=== PATIENT | female | born 1965 | race Caucasian/White ===

== ENCOUNTER → 2019-01-19 | Outpatient (CLI) | payer OTHER ==
[~2019-01-19] MED LIST: BI-EST PO; CHOL200022 PO; GLUC-396 PO; IOPAMIDOL 61% 75 ML INFUS BTL 75 ML ONE; KET10 PO; LOR5/325 PO; MULT-976 PO; NATURAL PROGESTERONE; OMEG-152 PO; OMEP-153 PO; PROG100C PO; TEST5POW21 SL; THYR32.517 PO; THYR65TA14 PO; THYROID PO; [UNRECOGNIZED DRUG - CODE] PO; [UNRECOGNIZED DRUG - CODE] PO; [UNRECOGNIZED DRUG - CODE] PO; [UNRECOGNIZED DRUG - MIXTURE] PO
--- NOTE | 2019-01-19 15:05 | RADIOLOGY IMAGING REPORT ---
FACILITY: [facility] PATIENT NAME: Kristine De Guzman : 1965 MR: [id number] V: [id number] EXAM DATE: ORDERING PHYSICIAN: JLUIS WEST TECHNOLOGIST: [place] [facility] [place] Kristine De Guzman : 1965 Visit/Account:[id number] Date of Sevice: 01/19/2019 EXAMINATION: CT abdomen and pelvis with contrast COMPARISON: None. HISTORY: Lower abdominal pain with rectal bleeding. PROCEDURE: Multiplanar contrast enhanced CT of the abdomen and pelvis with 75 mL intravenous Isovue 3 70. One of the following dose optimization techniques was utilized in the performance of this exam: A utomated exposure control; adjustment of the mA and/or kV according to the patient's size; or use of an iterative reconstruction technique. Specific details can be referenced in the facility's radiolo gy CT exam operational policy. FINDINGS: Visualized thorax: Negative. Liver: Negative. Gallbladder and biliary system: Cholecystectomy. No bile duct dilation. Spleen: Negative. Pancreas: Negative. Adrenal glands: Negative. 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 No renal mass or hydronephrosis. Urinary bladder is unremarkable. Vessels: Within normal limits. Bowel and mesentery: Stomach, small bowel, and appendix are unremarkable. Small to moderate amount o f stool in the colon. Single tiny diverticulum along the proximal sigmoid colon. No bowel or mesent tracie inflammation. Pelvic organs: Hysterectomy. No adnexal mass. Lymph nodes: No adenopathy. Free air/free fluid: None. Abdominal wall and osseous structures: Abdominal wall is intact. Lower lumbar spine minor facet arth ropathy. No acute findings. IMPRESSION: 1. No findings of acute disease in the abdomen or pelvis. 2. Chronic/incidental findings as described above. Report Dictated By: Salomon Bowers MD at 01/19/2019 2:54 PM Report E-Signed By: Salomon Bowers MD at 01/19/2019 3:01 PM WSN:[id number]
== END ==
LOC: CT 10:01
PROVIDERS: ATTEND Family Medicine
DX: K62.5 Hemorrhage of anus and rectum (principal); R10.9 Unspecified abdominal pain
CPT/HCPCS: 74177; Q9967

== ENCOUNTER 2019-02-22 01:15 | Day surgery (SDC) | payer OTHER ==
[~2019-02-22] VITALS: Ht 154.9 cm; Wt 52.6 kg
[~2019-02-22 01:15] MED LIST changes: +CYAN500L6 PO; -IOPAMIDOL 61% 75 ML INFUS BTL 75 ML ONE; +MULTI MINERAL PO; +THYR120T10 PO
[2019-02-22] MEDS ORDERED: PROPOFOL EMUL(*) 10MG/ML 20 ML 20 ML ONE ×2 (07:03→11:03)
[2019-02-22 09:45] VITALS: BP 118/73
[2019-02-22] MEDS ORDERED: LIDOCAINE/SOD BICARB 8.4% SYR ID ONE (10:00)
[2019-02-22] MEDS ORDERED: NORMOSOL R SOLN(*) 1000 ML BAG 1,000 ML IV PRN (10:00)
[2019-02-22 11:40] VITALS: BP 101/64
--- NOTE | 2019-02-22 11:40 | NUR ---
1140- PT BROUGHT TO BAY 5 IN LL POSITION, PT SLEEPING, UNRESPONSIVE AT THIS TIME, PT ON 2LPM VIA HF NC, PT MAINTAINING SATS, RESP, AIRWAY, WILL CONTINUE TO MONITOR, PT VSS, SBAR REPORT FROM DR. FORBES AND Curtis ACEVEDO RN 1144- PT DROWSY, REPOSITIONED ON BACK IN SF POSITION 1148- CALL LIGHT WITHIN REACH, PT WOULD LIKE TO REST
[2019-02-22 11:45] VITALS: BP 101/66
--- NOTE | 2019-02-22 11:49 | NUR ---
1149- DECREASED O2 TO 1LPM
--- NOTE | 2019-02-22 11:51 | Short(Outpt) Discharge Summary ---
Discharge Summary Reason for Hosp/Final Diag: (1) Mucous in stools Status: Chronic Hospital Course & Plan: Colonoscopy with polypectomy x1 completed without problems. (2) Blood per rectum Status: Chronic (3) Abdominal fullness in right lower quadrant Status: Chronic (4) Family history of polyps in the colon (5) Gastric polyps Status: Chronic Hospital Course & Plan: EGD with excision of several gastric polyps completed without problems. Departure Discharge to: Home, Self Care Discharge Instructions Home Meds Reported Medications Cyanocobalamin (Vitamin B-12) (B-12) 500 Mcg Tab.rapdis, 1 SPRAY PO QDAY 02/15/19 [Multi Mineral ] No Conflict Check, 1 DRPFL PO QDAY 02/15/19 Thyroid,Pork (ARMOUR THYROID) 120 Mg Tablet, 120 MG PO DAILY 01/23/19 [E3-0.1MG/E2-0.075MG] No Conflict Check, 1 TAB PO QAM 12/16/15 Cholecalciferol (Vitamin D3) (Vitamin D-3) 2,000 Unit Tablet, 2000 MG PO QAM 12/16/15 [place]-3/Dha/Epa/Fish Oil (FISH OIL OMEGA-3 SOFTGEL) 1 Each Capsule.dr, 2 EACH PO QAM 12/16/15 Testosterone (TESTOSTERONE) 5 Gm Powder, 0.5 GM SL QAM 12/16/15 Progesterone,Micronized (PROGESTERONE) 100 Mg Capsule, 40 MG PO QHS, CAPSULE 12/16/15 Discontinued Reported Medications Multivitamin (MULTIPLE VITAMINS) 1 Each Tablet, 1 EACH PO QDAY 12/16/15 Progesterone,Micronized (PROGESTERONE) 100 Mg Capsule, 1 MG PO QAM, CAPSULE 12/16/15 Diet: Regular Activity: As Tolerated Special Instructions: Your upper endoscopy and colonoscopy were completed without problems and your prep was excellent (Good Job!!). I removed several polyps from your stomach and a single polyp from your colon. There were no ulcers, inflammation, cancer, or other abnormalities. All the polyps were sent to pathology but all looked benign. My office will call you in the next week or two to let you know what the polyps are but, in any case, I recommend that you have another colonoscopy in 5 years. CHRISTIANO HUDSON MD Feb 22, 2019 11:51
--- NOTE | 2019-02-22 11:57 | NUR ---
1157- DR. HUDSON AT BEDSIDE, REVIEWING RESULTS WITH PT, PT IS AWAKE AND ALERT, PT PLACED ON RA
[2019-02-22 12:00] VITALS: BP 102/61
[2019-02-22 12:10] VITALS: BP 98/65
--- NOTE | 2019-02-22 12:10 | NUR ---
1210- ORTHOSTATIC VSS SEE CHART FOR DETAILS 1215- PT AMBULATORY TO RESTROOM, STEADY GAIT NOTED 1225- PT REPORTS VOID X 1, PT DRESSED, NITA FRIEND AT BEDSIDE 1230- REVIEWED D/C INSTRUCTIONS WITH PT AND FRIEND, PT VERBALIZED UNDERSTANDING 1235- PT AMBULATORY TO FRONT LOBBY, ACCOMPANIED BY JOCY LUGO AND FRIEND NITA
[2019-02-22 12:11] VITALS: BP 96/67
== END 2019-02-22 12:35 | disposition home or self-care (01) ==
LOC: OR 01:15
PROVIDERS: ATTEND Surgery
DX: Z12.11 Encounter for screening for malignant neoplasm of colon (principal); D12.5 Benign neoplasm of sigmoid colon
CPT/HCPCS: 00813; 43251; 45385; 88305; 88344; J2704